=== PATIENT | female | born 1975 | race Two or more races ===

== ENCOUNTER 2017-10-03 07:21 | Emergency (ER) | payer BC ==
[~2017-10-03] VITALS: Ht 157.5 cm; Wt 54.4 kg
[2017-10-03 07:53] VITALS: BP 131/88
[2017-10-03 08:34] LABS: Urine Bilirubin Negative (Negative); Urine Blood Negative /uL (Negative); Urine Color Yellow (Yellow); Urine Glucose Normal (Normal); Urine Ketone Negative (Negative); Urine Nitrite Negative (Negative); Urine RBC <1 /hpf (0 - 4); Urine Squamous Epithelial Cell FEW /hpf (<5); Urine Urobilinogen Normal (Negative)
[2017-10-03 09:04] LABS: Basophils # (auto) 0 uL; Basophils % (auto) 0.9 % (0.0-2.0); Eosinophils # (auto) 0.1 uL; Eosinophils % (auto) 3.4 % (0.0-7.0); Hematocrit 39.6 % (36.0-46.0); Hemoglobin 13.4 g/dL (12.2-16.2); Lymphocytes # (auto) 1.5 uL; Mean Corpuscular Hemoglobin 28.5 pg (28.0-32.0); Mean Corpuscular Hgb Conc. 33.9 g/dL (32.0-36.0); Mean Platelet Volume 8.1 fL (6.9-10.8); Monocytes # (auto) 0.4 uL; Monocytes % (auto) 8.2 % (0.0-12.0); Neutrophils # (auto) 2.3 uL; Neutrophils % (auto) 52.5 % (37.0-80.0); Nucleated Red Blood Cells % 0.1 %; Platelet Count (auto) 248 10^3/uL (140-450); Red Cell Distribution Width 13.6 % (11.8-14.3); White Blood Cell 4.4 10^3/uL (4.4-10.8)
[2017-10-03 09:25] LABS: Albumin 3.2 g/dL (3.4-5.0); BUN/Creatinine Ratio 22.2; Bilirubin, Total 0.4 mg/dL (0.2-1.0); Calcium 8.1 mg/dL (8.5-10.1); Total Protein 6.4 g/dL (6.4-8.2)
[2017-10-03] MEDS ORDERED: NITROFURANTOIN (MONO) 100 mg CAP PO ONE (09:45)
== END 2017-10-03 09:51 | disposition home or self-care (01) ==
LOC: ER 07:21
DX: N39.0 Urinary tract infection, site not specified (principal); Z98.51 Tubal ligation status
CPT/HCPCS: 36415; 74176; 80053; 81001; 85025

== ENCOUNTER → 2018-04-12 | Outpatient (CLI) | payer BC ==
[2018-04-12 08:27] LABS: Urine Blood TRACE /uL (Negative); Urine Specific Gravity 1.022 (1.001-1.035)
[2018-04-12 08:31] LABS: Basophils # (auto) 0 uL; Basophils % (auto) 0.7 % (0.0-2.0); Eosinophils # (auto) 0.1 uL; Eosinophils % (auto) 3.2 % (0.0-7.0); Hematocrit 44.3 % (36.0-46.0); Hemoglobin 14.5 g/dL (12.2-16.2); Lymphocytes # (auto) 1.5 uL; Lymphocytes % (auto) 32.1 % (10.0-50.0); Mean Corpuscular Hemoglobin 27.5 pg (28.0-32.0); Mean Corpuscular Hgb Conc. 32.8 g/dL (32.0-36.0); Mean Corpuscular Volume 83.8 fL (80.0-100.0); Monocytes # (auto) 0.4 uL; Monocytes % (auto) 8.3 % (0.0-12.0); Neutrophils # (auto) 2.5 uL; Neutrophils % (auto) 55.7 % (37.0-80.0); Nucleated Red Blood Cells % 0.1 %; Platelet Count (auto) 261 10^3/uL (140-450); Red Blood Cells 5.29 10^6/uL (4.0-5.20); Red Cell Distribution Width 13.9 % (11.8-14.3); White Blood Cell 4.5 10^3/uL (4.4-10.8)
[2018-04-12 08:46] LABS: Albumin 3.6 g/dL (3.4-5.0); BUN/Creatinine Ratio 26.5; Bilirubin, Total 0.4 mg/dL (0.2-1.0); Calcium 8.7 mg/dL (8.5-10.1); Potassium 4.2 mmol/L (3.5-5.1); Total Protein 7.2 g/dL (6.4-8.2)
== END | disposition home or self-care (01) ==
LOC: LAB 07:50
PROVIDERS: ATTEND Physician Assistant
DX: Z00.01 Encounter for general adult medical examination with abnormal findings (principal); F41.9 Anxiety disorder, unspecified; F32.5 Major depressive disorder, single episode, in full remission; N39.0 Urinary tract infection, site not specified; R53.83 Other fatigue; Z83.3 Family history of diabetes mellitus
CPT/HCPCS: 36415; 80053; 80061; 81003; 82306; 82607; 83036; 84443; 85025

== ENCOUNTER → 2019-05-18 | Outpatient (CLI) | payer BC ==
[2019-05-18 08:03] LABS: Basophils # (auto) 0 uL; Basophils % (auto) 0.5 % (0.0-2.0); Eosinophils # (auto) 0.1 uL; Eosinophils % (auto) 2.8 % (0.0-7.0); Hemoglobin 14.2 g/dL (12.2-16.2); Lymphocytes # (auto) 1.4 uL; Lymphocytes % (auto) 27.7 % (10.0-50.0); Mean Corpuscular Hgb Conc. 33.9 g/dL (32.0-36.0); Mean Corpuscular Volume 82.7 fL (80.0-100.0); Monocytes # (auto) 0.5 uL; Monocytes % (auto) 8.9 % (0.0-12.0); Neutrophils # (auto) 3.1 uL; Neutrophils % (auto) 60.1 % (37.0-80.0); Nucleated Red Blood Cells % 0.3 %; Platelet Count (auto) 243 10^3/uL (140-450); Red Blood Cells 5.08 10^6/uL (4.0-5.20); White Blood Cell 5.1 10^3/uL (4.4-10.8)
[2019-05-18 08:41] LABS: Albumin 3.4 g/dL (3.4-5.0); Calcium 8.5 mg/dL (8.5-10.1); Potassium 4.1 mmol/L (3.5-5.1)
[2019-05-18 08:47] LABS: BUN/Creatinine Ratio 22.1; Bilirubin, Total 0.4 mg/dL (0.2-1.0); Total Protein 6.9 g/dL (6.4-8.2)
== END | disposition home or self-care (01) ==
LOC: LAB 07:22
PROVIDERS: ATTEND Physician Assistant
DX: Z00.00 Encounter for general adult medical examination without abnormal findings (principal); E55.9 Vitamin D deficiency, unspecified; F41.9 Anxiety disorder, unspecified; R53.83 Other fatigue
CPT/HCPCS: 36415; 80053; 80061; 82306; 84443; 85025

== ENCOUNTER → 2020-05-23 | Outpatient (CLI) | payer BC ==
[2020-05-23 11:37] LABS: Follicle Stimulating Hormone 4.25 IU/L (SEE BELOW); Leuteinizing Hormone 1.8 IU/L
== END | disposition home or self-care (01) ==
LOC: LAB 10:55
PROVIDERS: ATTEND Obstetrics & Gynecology
DX: N92.0 Excessive and frequent menstruation with regular cycle (principal)
CPT/HCPCS: 36415; 82670; 83001; 83002; 84403; 84443

== ENCOUNTER → 2020-05-27 | Outpatient (CLI) | payer BC ==
[2020-05-27 09:01] LABS: Basophils # (auto) 0 10 ^3/uL (0-0.2); Eosinophils # (auto) 0.2 10 ^3/uL (0-0.8); Monocytes # (auto) 0.4 10 ^3/uL (0-1.3)
[2020-05-27 09:02] LABS: Basophils % (auto) 0.7 % (0.0-2.0); Eosinophils % (auto) 4.9 % (0.0-7.0); Hematocrit 40.2 % (36.0-46.0); Lymphocytes # (auto) 1.5 10 ^3/uL (0.4-5.4); Lymphocytes % (auto) 33.6 % (10.0-50.0); Mean Corpuscular Hemoglobin 26.2 pg (28.0-32.0); Mean Corpuscular Hgb Conc. 32.3 g/dL (32.0-36.0); Mean Corpuscular Volume 81.2 fL (80.0-100.0); Monocytes % (auto) 8.9 % (0.0-12.0); Neutrophils # (auto) 2.4 10 ^3/uL (1.6-8.6); Neutrophils % (auto) 51.9 % (37.0-80.0); Nucleated Red Blood Cells % 0.1 %; Platelet Count (auto) 269 10^3/uL (140-450); Red Blood Cells 4.95 10^6/uL (4.0-5.20); Red Cell Distribution Width 14.3 % (11.8-14.3); White Blood Cell 4.5 10^3/uL (4.4-10.8)
[2020-05-27 09:52] LABS: Potassium 3.8 mmol/L (3.5-5.1)
[2020-05-27 10:11] LABS: Albumin 3.4 g/dL (3.4-5.0); Bilirubin, Total 0.3 mg/dL (0.2-1.0); Calcium 8.6 mg/dL (8.5-10.1); Total Protein 7.2 g/dL (6.4-8.2)
== END | disposition home or self-care (01) ==
LOC: LAB 08:50
PROVIDERS: ATTEND Physician Assistant
DX: Z12.11 Encounter for screening for malignant neoplasm of colon (principal); Z00.00 Encounter for general adult medical examination without abnormal findings; E55.9 Vitamin D deficiency, unspecified; R60.0 Localized edema; R53.83 Other fatigue
CPT/HCPCS: 36415; 80053; 80061; 82306; 85025

== ENCOUNTER → 2020-06-17 | Outpatient (CLI) | payer BC | END | disposition home or self-care (01) | LOC: LAB 15:00 | PROVIDERS: ATTEND Obstetrics & Gynecology | DX: N92.0 Excessive and frequent menstruation with regular cycle (principal) ==

== ENCOUNTER 2020-08-15 06:15 | Day surgery (SDC) | payer BC ==
[2020-08-11 11:13] LABS: Urine Bacteria FEW /hpf (None Seen); Urine Blood Negative /uL (Negative); Urine Specific Gravity 1.009 (1.001-1.035); Urine WBC 3 /hpf (0 - 5)
[2020-08-11 11:15] LABS: Basophils # (auto) 0 10 ^3/uL (0-0.2); Eosinophils # (auto) 0.2 10 ^3/uL (0-0.8); Lymphocytes # (auto) 1.4 10 ^3/uL (0.4-5.4); Monocytes # (auto) 0.4 10 ^3/uL (0-1.3); Neutrophils # (auto) 3.5 10 ^3/uL (1.6-8.6); Red Blood Cells 5.04 10^6/uL (4.0-5.20); White Blood Cell 5.4 10^3/uL (4.4-10.8)
[2020-08-11 11:16] LABS: Basophils % (auto) 0.6 % (0.0-2.0); Eosinophils % (auto) 2.8 % (0.0-7.0); Hemoglobin 12.9 g/dL (12.2-16.2); Lymphocytes % (auto) 25.2 % (10.0-50.0); Mean Corpuscular Hemoglobin 25.7 pg (28.0-32.0); Mean Corpuscular Hgb Conc. 32.4 g/dL (32.0-36.0); Mean Corpuscular Volume 79.3 fL (80.0-100.0); Monocytes % (auto) 7.4 % (0.0-12.0); Platelet Count (auto) 288 10^3/uL (140-450); Red Cell Distribution Width 14.5 % (11.8-14.3)
[2020-08-11 11:29] LABS: INR 0.97 (0.9-1.15); Partial Thromboplastin Time 25.3 sec (23.0-31.2)
[2020-08-11 12:31] LABS: Albumin 3.6 g/dL (3.4-5.0); Calcium 8.6 mg/dL (8.5-10.1); Potassium 4.2 mmol/L (3.5-5.1)
[2020-08-11 12:36] LABS: BUN/Creatinine Ratio 15.5; Bilirubin, Total 0.4 mg/dL (0.2-1.0); Total Protein 6.8 g/dL (6.4-8.2)
[~2020-08-15] VITALS: Ht 157.5 cm; Wt 59.0 kg
[2020-08-15] MEDS ORDERED: ceFAZolin 1GM/50ML 50 ML IV ONE (07:02)
[2020-08-15] MEDS ORDERED: METOCLOPRAMIDE HCL 5MG/ml INJ 2ml VIAL IV PRN (07:30)
[2020-08-15] MEDS ORDERED: MORPHINE SULFATE 4 MG/ML SYR/VIAL IV PRN (07:30)
[2020-08-15] MEDS ORDERED: HYDROmorphone HCL 2 MG/ML VL IV PRN (07:30)
[2020-08-15] MEDS ORDERED: MIDAZOLAM HCL 1MG/1ML-2 ML VIAL ONE (07:33)
[2020-08-15] MEDS ORDERED: PROPOFOL 10 MG/ML 20 ML IV ONE ×2 (07:33→11:07)
[2020-08-15] MEDS ORDERED: SODIUM CHLORIDE LOCK 10 ML ONE (07:33)
[2020-08-15] MEDS ORDERED: fentaNYL CITRATE 100 MCG/2 ML VL ONE (07:33)
[2020-08-15] MEDS ORDERED: ONDANSETRON HCL 4 MG/2 ML VIAL ONE (07:33)
[2020-08-15] MEDS ORDERED: LIDOCAINE 2% (LOCAL ANESTH.) PF 5ml SDV ONE (08:09)
[2020-08-15] MEDS ORDERED: ONDANSETRON HCL 4 MG/2 ML VIAL IV PRN (08:45)
[2020-08-15] MEDS ORDERED: LACTATED RINGER'S 1,000 ML IV SCH (08:45)
[2020-08-15 09:48] VITALS: BP 146/83
== END 2020-08-15 11:30 | disposition home or self-care (01) ==
LOC: SUR 06:15
PROVIDERS: ATTEND Obstetrics & Gynecology
DX: N93.8 Other specified abnormal uterine and vaginal bleeding (principal); D25.9 Leiomyoma of uterus, unspecified; D26.1 Other benign neoplasm of corpus uteri; D64.9 Anemia, unspecified; Z98.51 Tubal ligation status; Z98.890 Other specified postprocedural states; Z20.828 Contact with and (suspected) exposure to other viral communicable diseases
CPT/HCPCS: 36415; 58563; 80053; 81001; 84702; 85025; 85610; 85730; 86850; 86900; 86901; 88305; J0690; J1170; J2001; J2250; J2405; J2704; J3010; U0003

== ENCOUNTER → 2021-05-28 | Outpatient (CLI) | payer BC ==
[2021-05-28 07:33] LABS: Basophils # (auto) 0 10 ^3/uL (0-0.2); Basophils % (auto) 0.8 % (0.0-2.0); Eosinophils # (auto) 0.2 10 ^3/uL (0-0.8); Eosinophils % (auto) 3.1 % (0.0-7.0); Hematocrit 42.2 % (36.0-46.0); Hemoglobin 14.3 g/dL (12.2-16.2); Lymphocytes # (auto) 1.7 10 ^3/uL (0.4-5.4); Lymphocytes % (auto) 32.1 % (10.0-50.0); Mean Corpuscular Hemoglobin 27.4 pg (28.0-32.0); Mean Corpuscular Hgb Conc. 33.9 g/dL (32.0-36.0); Mean Corpuscular Volume 80.8 fL (80.0-100.0); Monocytes # (auto) 0.4 10 ^3/uL (0-1.3); Monocytes % (auto) 8.7 % (0.0-12.0); Neutrophils # (auto) 2.8 10 ^3/uL (1.6-8.6); Neutrophils % (auto) 55.3 % (37.0-80.0); Red Blood Cells 5.22 10^6/uL (4.0-5.20); Red Cell Distribution Width 14.3 % (11.8-14.3); White Blood Cell 5.2 10^3/uL (4.4-10.8)
[2021-05-28 08:01] LABS: Albumin 3.5 g/dL (3.4-5.0); Calcium 8.5 mg/dL (8.5-10.1)
[2021-05-28 08:07] LABS: BUN/Creatinine Ratio 20.3; Bilirubin, Total 0.5 mg/dL (0.2-1.0); Total Protein 7.3 g/dL (6.4-8.2)
[2021-05-28 08:38] LABS: Leuteinizing Hormone 4.4 IU/L
[2021-05-28 08:39] LABS: Follicle Stimulating Hormone 3.6 IU/L (SEE BELOW)
== END | disposition home or self-care (01) ==
LOC: LAB 06:54
PROVIDERS: ATTEND Nurse Practitioner Family
DX: I83.20 Varicose veins of unspecified lower extremity with both ulcer and inflammation (principal); F41.1 Generalized anxiety disorder; E78.5 Hyperlipidemia, unspecified; E55.9 Vitamin D deficiency, unspecified
CPT/HCPCS: 36415; 80053; 80061; 82306; 82672; 83001; 83002; 84144; 84443; 85025

== ENCOUNTER → 2021-06-10 | Day surgery (SDC) | payer BC ==
[2021-06-03 08:56] LABS: Urine WBC None Seen /hpf (0 - 5)
[2021-06-03 08:59] LABS: Basophils # (auto) 0.1 10 ^3/uL (0-0.2); Eosinophils # (auto) 0.2 10 ^3/uL (0-0.8); Eosinophils % (auto) 3.7 % (0.0-7.0); Hematocrit 42.5 % (36.0-46.0); Hemoglobin 14.2 g/dL (12.2-16.2); Lymphocytes # (auto) 1.4 10 ^3/uL (0.4-5.4); Lymphocytes % (auto) 27.9 % (10.0-50.0); Mean Corpuscular Hemoglobin 27.1 pg (28.0-32.0); Mean Corpuscular Hgb Conc. 33.3 g/dL (32.0-36.0); Mean Corpuscular Volume 81.5 fL (80.0-100.0); Monocytes # (auto) 0.4 10 ^3/uL (0-1.3); Monocytes % (auto) 8.3 % (0.0-12.0); Neutrophils # (auto) 2.9 10 ^3/uL (1.6-8.6); Neutrophils % (auto) 59.1 % (37.0-80.0); Nucleated Red Blood Cells % 0.1 %; Red Blood Cells 5.22 10^6/uL (4.0-5.20); Red Cell Distribution Width 14.4 % (11.8-14.3)
[2021-06-03 09:27] LABS: INR 1.01 (0.9-1.15); Partial Thromboplastin Time 26.8 sec (23.6-33.0)
[2021-06-03 09:34] LABS: Urine Bacteria NONE SEEN /hpf (None Seen); Urine Blood 2+ /uL (Negative); Urine Specific Gravity 1.008 (1.001-1.035)
[2021-06-03 09:36] LABS: Albumin 3.4 g/dL (3.4-5.0); BUN/Creatinine Ratio 15.1; Calcium 8.6 mg/dL (8.5-10.1)
[2021-06-03 09:39] LABS: Bilirubin, Total 0.3 mg/dL (0.2-1.0); Total Protein 7.2 g/dL (6.4-8.2)
[~2021-06-10] VITALS: Ht 157.5 cm; Wt 61.2 kg
[~2021-06-10] MED LIST: BETAMETHASONE ACET (30mg/5ml) 5ml Vial 6mg/ml ONE; BUPIVACAINE W/ EPINEPH 0.5% MPF 30ML VIAL IJ ONE; HYDROmorphone HCL 2 MG/ML VL IV PRN; LIDOCAINE 2% (LOCAL ANESTH.) PF 5ml SDV ONE; MIDAZOLAM HCL 2MG/2ML 2ml VIAL (1mg/ml) ONE; ONDANSETRON HCL 4 MG/2 ML VIAL IV PRN; ONDANSETRON HCL 4 MG/2 ML VIAL ONE; PROPOFOL 10 MG/ML 20 ML IV ONE; ceFAZolin 1GM/50ML 100 ML IV ONE; fentaNYL CITRATE 100 MCG/2 ML VL ONE
[2021-06-10 14:50] VITALS: BP 129/41
== END | disposition home or self-care (01) ==
LOC: SUR 10:46
PROVIDERS: ATTEND Surgery
DX: I83.91 Asymptomatic varicose veins of right lower extremity (principal); M79.89 Other specified soft tissue disorders; Z98.890 Other specified postprocedural states; Z79.899 Other long term (current) drug therapy; Z20.822 Contact with and (suspected) exposure to COVID-19
CPT/HCPCS: 36415; 37785; 80053; 81001; 81025; 85025; 85610; 85730; J0690; J0702; J2001; J2250; J2405; J2704; J3010; J7030; U0003

== ENCOUNTER → 2022-01-28 | Outpatient (CLI) | payer BC ==
[2022-01-28 13:04] LABS: Basophils # (auto) 0 10 ^3/uL (0-0.2); Basophils % (auto) 0.9 % (0.0-2.0); Eosinophils # (auto) 0.1 10 ^3/uL (0-0.8); Eosinophils % (auto) 2.6 % (0.0-7.0); Hematocrit 39.7 % (36.0-46.0); Hemoglobin 13.4 g/dL (12.2-16.2); Lymphocytes # (auto) 1.6 10 ^3/uL (0.4-5.4); Lymphocytes % (auto) 30.9 % (10.0-50.0); Mean Corpuscular Hemoglobin 27.5 pg (28.0-32.0); Mean Corpuscular Hgb Conc. 33.8 g/dL (32.0-36.0); Mean Corpuscular Volume 81.1 fL (80.0-100.0); Monocytes # (auto) 0.5 10 ^3/uL (0-1.3); Monocytes % (auto) 9.2 % (0.0-12.0); Neutrophils % (auto) 56.4 % (37.0-80.0); Nucleated Red Blood Cells % 0.1 %; Red Cell Distribution Width 13.4 % (11.8-14.3); White Blood Cell 5.3 10^3/uL (4.4-10.8)
[2022-01-28 13:21] LABS: Albumin 3.4 g/dL (3.4-5.0); Calcium 8.5 mg/dL (8.5-10.1); Potassium 3.8 mmol/L (3.5-5.1)
[2022-01-28 13:24] LABS: BUN/Creatinine Ratio 16.2; Bilirubin, Total 0.4 mg/dL (0.2-1.0); Total Protein 6.8 g/dL (6.4-8.2)
== END | disposition home or self-care (01) ==
LOC: LAB 12:02
PROVIDERS: ATTEND Nurse Practitioner Family
DX: Z00.00 Encounter for general adult medical examination without abnormal findings (principal); E55.9 Vitamin D deficiency, unspecified; R10.9 Unspecified abdominal pain; R30.0 Dysuria; F41.9 Anxiety disorder, unspecified
CPT/HCPCS: 36415; 80053; 82306; 85025

== ENCOUNTER 2022-04-09 06:18 | Inpatient (IN) | payer BC ==
[2022-04-06 09:37] LABS: Basophils # (auto) 0 10 ^3/uL (0-0.2); Basophils % (auto) 0.6 % (0.0-2.0); Eosinophils # (auto) 0.1 10 ^3/uL (0-0.8); Eosinophils % (auto) 2.2 % (0.0-7.0); Hemoglobin 13.2 g/dL (12.2-16.2); Lymphocytes # (auto) 1.5 10 ^3/uL (0.4-5.4); Mean Corpuscular Hemoglobin 27.5 pg (28.0-32.0); Mean Corpuscular Hgb Conc. 33.7 g/dL (32.0-36.0); Mean Corpuscular Volume 81.5 fL (80.0-100.0); Monocytes # (auto) 0.5 10 ^3/uL (0-1.3); Neutrophils # (auto) 3.5 10 ^3/uL (1.6-8.6); Neutrophils % (auto) 61.2 % (37.0-80.0); Nucleated Red Blood Cells % 0.1 %; Red Blood Cells 4.78 10^6/uL (4.0-5.20); Red Cell Distribution Width 14.2 % (11.8-14.3); White Blood Cell 5.7 10^3/uL (4.4-10.8)
[2022-04-06 09:42] LABS: Urine Bacteria FEW /hpf (None Seen); Urine Blood 2+ /uL (Negative); Urine Specific Gravity 1.009 (1.001-1.035); Urine WBC <1 /hpf (0 - 5)
[2022-04-06 09:51] LABS: INR 1.02 (0.9-1.15); Partial Thromboplastin Time 26.7 sec (23.6-33.0)
[2022-04-06 10:05] LABS: Calcium 8.4 mg/dL (8.5-10.1); Potassium 3.9 mmol/L (3.5-5.1)
[2022-04-06 10:12] LABS: Albumin 3.3 g/dL (3.4-5.0); BUN/Creatinine Ratio 18.8; Bilirubin, Total 0.5 mg/dL (0.2-1.0); Total Protein 6.6 g/dL (6.4-8.2)
[~2022-04-09] VITALS: Ht 157.5 cm; Wt 63.2 kg
[2022-04-09] MEDS ORDERED: ceFAZolin 1GM/50ML 100 ML IV ONE (06:36)
[2022-04-09] MEDS ORDERED: HYDR-4902 PO (07:32)
[2022-04-09] MEDS ORDERED: DOCU-94 PO (07:32)
[2022-04-09] MEDS ORDERED: IBUP800T27 PO (07:32)
[2022-04-09] MEDS ORDERED: MEPERIDINE HCL (50 MG/ML) 1 ML VIAL ONE (08:10)
[2022-04-09] MEDS ORDERED: MIDAZOLAM HCL 2MG/2ML 2ml VIAL (1mg/ml) ONE (08:10)
[2022-04-09] MEDS ORDERED: fentaNYL CITRATE 100 MCG/2 ML VL ONE (08:10)
[2022-04-09] MEDS ORDERED: NEOSTIGMINE 1 MG/ML INJ (10mg/10ML VIAL) IV ONE (08:40)
[2022-04-09] MEDS ORDERED: DexAMETHasone SOD PHOS 10MG/1ML VIAL INJ ONE (08:40)
[2022-04-09] MEDS ORDERED: GLYCOPYRROLATE 0.2 MG/ML 1ML VIAL IV ONE (08:40)
[2022-04-09] MEDS ORDERED: PROPOFOL 10 MG/ML 20 ML IV ONE (08:40)
[2022-04-09] MEDS ORDERED: LABETALOL HCL 5 MG/ML 4ML SYRINGE IV PRN (08:45)
[2022-04-09] MEDS ORDERED: MORPHINE SULFATE 4 MG/ML SYR/VIAL IV PRN ×2 (08:45→09:45)
[2022-04-09] MEDS ORDERED: MIDAZOLAM HCL 2MG/2ML 2ml VIAL (1mg/ml) IV PRN (08:45)
[2022-04-09] MEDS ORDERED: ePHEDrine SULFATE 50 MG/ML AMP IV PRN (08:45)
[2022-04-09] MEDS ORDERED: ONDANSETRON HCL 4 MG/2 ML VIAL IV PRN (08:45)
[2022-04-09] MEDS: HYDROmorphone HCL 2 MG/ML VL/or syr IV PRN ×8 (09:57→21:12)
[2022-04-09] MEDS: LACTATED RINGER'S 1,000 ML IV SCH ×2 (10:17→21:14)
[2022-04-09] MEDS ORDERED: NITROGLYCERIN 0.4 MG SL TAB SL PRN (10:30)
[2022-04-09] MEDS ORDERED: MORPHINE SULFATE INJ 2 MG/ml SYRG IV PRN (10:30)
[2022-04-09] MEDS ORDERED: hydrALAZINE HCL 20 MG/ML VL ONE (10:55)
[2022-04-09] MEDS ORDERED: hydrALAZINE HCL 20 MG/ML VL IV PRN (11:00)
[2022-04-09] MEDS: ONDANSETRON HCL 4 MG/2 ML VIAL IV PRN ×2 (12:45→16:45)
[2022-04-09 13:00] VITALS: BP 140/91
[2022-04-09] MEDS: ceFAZolin 1GM/50ML 50 ML IV SCH ×2 (13:43→21:14)
[2022-04-09 15:49] VITALS: BP 138/84
[2022-04-09 17:12] VITALS: BP 117/75
[2022-04-09 19:46] LABS: Basophils # (auto) 0 10 ^3/uL (0-0.2); Basophils % (auto) 0.1 % (0.0-2.0); Eosinophils # (auto) 0 10 ^3/uL (0-0.8); Hematocrit 37.5 % (36.0-46.0); Hemoglobin 12.6 g/dL (12.2-16.2); Lymphocytes # (auto) 0.7 10 ^3/uL (0.4-5.4); Lymphocytes % (auto) 6.6 % (10.0-50.0); Mean Corpuscular Hemoglobin 27.4 pg (28.0-32.0); Mean Corpuscular Hgb Conc. 33.7 g/dL (32.0-36.0); Mean Corpuscular Volume 81.4 fL (80.0-100.0); Monocytes # (auto) 0.5 10 ^3/uL (0-1.3); Monocytes % (auto) 4.7 % (0.0-12.0); Neutrophils # (auto) 9.5 10 ^3/uL (1.6-8.6); Neutrophils % (auto) 88.6 % (37.0-80.0); Nucleated Red Blood Cells % 0.1 %; Red Blood Cells 4.61 10^6/uL (4.0-5.20); Red Cell Distribution Width 14.2 % (11.8-14.3); White Blood Cell 10.7 10^3/uL (4.4-10.8)
[2022-04-09 21:39] VITALS: BP 134/79
[2022-04-10] MEDS: LACTATED RINGER'S 1,000 ML IV SCH ×4 (03:11→14:22)
[2022-04-10] MEDS: HYDROmorphone HCL 2 MG/ML VL/or syr IV PRN (03:12)
[2022-04-10] MEDS: ceFAZolin 1GM/50ML 50 ML IV SCH ×3 (05:46→21:20)
[2022-04-10] MEDS ORDERED: KETOROLAC TROMETH 30 MG/ML 1ML VIAL IV ONE (06:00)
[2022-04-10] MEDS ORDERED: BISACODYL 10 MG RECT SUPP PR PRN (06:00)
[2022-04-10 07:21] LABS: Basophils # (auto) 0 10 ^3/uL (0-0.2); Basophils % (auto) 0.3 % (0.0-2.0); Hemoglobin 11.8 g/dL (12.2-16.2); Lymphocytes # (auto) 1.5 10 ^3/uL (0.4-5.4); Monocytes # (auto) 0.6 10 ^3/uL (0-1.3); Neutrophils # (auto) 4.8 10 ^3/uL (1.6-8.6)
[2022-04-10 07:23] LABS: Eosinophils # (auto) 0.1 10 ^3/uL (0-0.8); Eosinophils % (auto) 0.7 % (0.0-7.0); Hematocrit 35.5 % (36.0-46.0); Lymphocytes % (auto) 21.8 % (10.0-50.0); Mean Corpuscular Hgb Conc. 33.2 g/dL (32.0-36.0); Mean Corpuscular Volume 81.2 fL (80.0-100.0); Monocytes % (auto) 8.5 % (0.0-12.0); Neutrophils % (auto) 68.7 % (37.0-80.0); Nucleated Red Blood Cells % 0.1 %; Red Blood Cells 4.37 10^6/uL (4.0-5.20); Red Cell Distribution Width 13.7 % (11.8-14.3)
[2022-04-10 09:00] VITALS: BP 135/89
[2022-04-10] MEDS: HYDROcodone-ACET 10/325MG TAB PO PRN ×2 (09:24→18:20)
[2022-04-10] MEDS: DOCUSATE SOD 100 MG CAP PO SCH ×2 (09:25→21:19)
[2022-04-10] MEDS: ONDANSETRON HCL 4 MG/2 ML VIAL IV PRN ×2 (10:30→20:32)
[2022-04-10] MEDS ORDERED: ACETAMINOPHEN 325 MG TAB PO PRN (11:15)
[2022-04-10 13:00] VITALS: BP 129/87
[2022-04-10 16:59] VITALS: BP 127/75
[2022-04-10 22:00] VITALS: BP 117/76
[2022-04-11] MEDS: HYDROcodone-ACET 10/325MG TAB PO PRN ×2 (04:01→09:08)
[2022-04-11] MEDS: LACTATED RINGER'S 1,000 ML IV SCH (04:01)
[2022-04-11 05:00] VITALS: BP 114/69
[2022-04-11] MEDS: ceFAZolin 1GM/50ML 50 ML IV SCH (06:17)
[2022-04-11 09:00] VITALS: BP 122/84
[2022-04-11] MEDS: DOCUSATE SOD 100 MG CAP PO SCH (09:08)
[2022-04-11] MEDS: ONDANSETRON HCL 4 MG/2 ML VIAL IV PRN (09:08)
[2022-04-11] MEDS ORDERED: RHO (D) IMMUNE GLOBULIN 300 MCG INJ IM PRN (10:00)
== END 2022-04-11 11:30 | disposition home or self-care (01) | DRG 743 ==
LOC: SUR 06:18 → OVERFLOW 10:30 → CENTRAL 12:22
PROVIDERS: ADMIT Obstetrics & Gynecology; ATTEND Obstetrics & Gynecology
PROC: 0UT90ZL Resection of Uterus, Supracervical, Open Approach (ICD-10-PCS; principal; 2022-04-09 08:28)
DX: N93.9 Abnormal uterine and vaginal bleeding, unspecified (principal); Z20.822 Contact with and (suspected) exposure to COVID-19; F41.9 Anxiety disorder, unspecified; F32.9 Major depressive disorder, single episode, unspecified; Z82.49 Family history of ischemic heart disease and other diseases of the circulatory system; Z83.3 Family history of diabetes mellitus
CPT/HCPCS: 36415; 80053; 81001; 81025; 84702; 85025; 85610; 85730; 86850; 86900; 86901; G0378; J0690; J1100; J1885; J2250; J2405; J2704

== ENCOUNTER → 2022-09-03 | Outpatient (CLI) | payer BC ==
[~2022-09-03] MED LIST changes: -BETAMETHASONE ACET (30mg/5ml) 5ml Vial 6mg/ml ONE; -BUPIVACAINE W/ EPINEPH 0.5% MPF 30ML VIAL IJ ONE; +DOCU-94 PO; +HYDR-4902 PO; -HYDROmorphone HCL 2 MG/ML VL IV PRN; +IBUP800T27 PO; -LIDOCAINE 2% (LOCAL ANESTH.) PF 5ml SDV ONE; -MIDAZOLAM HCL 2MG/2ML 2ml VIAL (1mg/ml) ONE; -ONDANSETRON HCL 4 MG/2 ML VIAL IV PRN; -ONDANSETRON HCL 4 MG/2 ML VIAL ONE; -PROPOFOL 10 MG/ML 20 ML IV ONE; -ceFAZolin 1GM/50ML 100 ML IV ONE; -fentaNYL CITRATE 100 MCG/2 ML VL ONE
[2022-09-03 10:30] LABS: Basophils # (auto) 0 10 ^3/uL (0-0.2); Basophils % (auto) 0.8 % (0.0-2.0); Eosinophils # (auto) 0.2 10 ^3/uL (0-0.8); Eosinophils % (auto) 2.6 % (0.0-7.0); Hematocrit 42.5 % (36.0-46.0); Lymphocytes # (auto) 2.4 10 ^3/uL (0.4-5.4); Lymphocytes % (auto) 38.2 % (10.0-50.0); Mean Corpuscular Hemoglobin 27.2 pg (28.0-32.0); Mean Corpuscular Volume 82.4 fL (80.0-100.0); Monocytes # (auto) 0.6 10 ^3/uL (0-1.3); Monocytes % (auto) 9.1 % (0.0-12.0); Neutrophils # (auto) 3.1 10 ^3/uL (1.6-8.6); Neutrophils % (auto) 49.3 % (37.0-80.0); Nucleated Red Blood Cells % 0.1 %; Red Blood Cells 5.16 10^6/uL (4.0-5.20); Red Cell Distribution Width 14.3 % (11.8-14.3); White Blood Cell 6.3 10^3/uL (4.4-10.8)
[2022-09-03 11:17] LABS: Albumin 3.6 g/dL (3.4-5.0)
[2022-09-03 11:21] LABS: BUN/Creatinine Ratio 14.5; Potassium 4.1 mmol/L (3.5-5.1)
[2022-09-03 11:24] LABS: Bilirubin, Total 0.4 mg/dL (0.2-1.0); Total Protein 6.9 g/dL (6.4-8.2)
== END | disposition home or self-care (01) ==
LOC: LAB 10:18
PROVIDERS: ATTEND Nurse Practitioner Family
DX: Z09 Encounter for follow-up examination after completed treatment for conditions other than malignant neoplasm (principal); E55.9 Vitamin D deficiency, unspecified
CPT/HCPCS: 36415; 80053; 82306; 85025

== ENCOUNTER → 2023-05-10 | Outpatient (CLI) | payer BC ==
[~2023-05-10] MED LIST changes: +IBUP-1456 PO; -IBUP800T27 PO
[2023-05-10 08:22] LABS: Basophils # (auto) 0 10 ^3/uL (0-0.2); Basophils % (auto) 0.7 % (0.0-2.0); Eosinophils # (auto) 0.2 10 ^3/uL (0-0.8); Eosinophils % (auto) 2.9 % (0.0-7.0); Hematocrit 43.5 % (36.0-46.0); Hemoglobin 14.5 g/dL (12.2-16.2); Lymphocytes # (auto) 1.9 10 ^3/uL (0.4-5.4); Lymphocytes % (auto) 31.6 % (10.0-50.0); Mean Corpuscular Hemoglobin 28.1 pg (28.0-32.0); Mean Corpuscular Hgb Conc. 33.4 g/dL (32.0-36.0); Monocytes # (auto) 0.5 10 ^3/uL (0-1.3); Monocytes % (auto) 7.6 % (0.0-12.0); Neutrophils # (auto) 3.5 10 ^3/uL (1.6-8.6); Neutrophils % (auto) 57.2 % (37.0-80.0); Nucleated Red Blood Cells % 0.6 %; Red Blood Cells 5.18 10^6/uL (4.0-5.20); Red Cell Distribution Width 13.7 % (11.8-14.3); White Blood Cell 6.1 10^3/uL (4.4-10.8)
[2023-05-10 08:56] LABS: Potassium 4.1 mmol/L (3.5-5.1)
[2023-05-10 09:07] LABS: Albumin 3.4 g/dL (3.4-5.0); BUN/Creatinine Ratio 28.3 (10.0-20.0); Bilirubin, Total 0.4 mg/dL (0.2-1.0); Calcium 8.6 mg/dL (8.5-10.1); Total Protein 6.9 g/dL (6.4-8.2)
[2023-05-10 09:08] LABS: Follicle Stimulating Hormone 2.51 IU/L (SEE BELOW); Free T4 (Free Thyroxine) 1.16 ng/dL (0.89-1.76); Leuteinizing Hormone 1.4 IU/L
== END | disposition home or self-care (01) ==
LOC: LAB 08:05
DX: Z00.01 Encounter for general adult medical examination with abnormal findings (principal); E55.9 Vitamin D deficiency, unspecified; E78.00 Pure hypercholesterolemia, unspecified
CPT/HCPCS: 36415; 80053; 80061; 82306; 82672; 83001; 83002; 84144; 84403; 84439; 84443; 85025

== ENCOUNTER → 2024-03-08 | Outpatient (CLI) | payer BC | END | disposition home or self-care (01) | LOC: XYW 08:28 | PROVIDERS: ATTEND Nurse Practitioner Family | DX: R07.9 Chest pain, unspecified (principal) | CPT/HCPCS: 93306 ==

== ENCOUNTER → 2024-12-06 | Outpatient (CLI) | payer BC ==
[2024-12-06 14:15] LABS: Basophils # (auto) 0.1 10 ^3/uL (0-0.2); Basophils % (auto) 0.8 % (0.0-2.0); Eosinophils # (auto) 0.2 10 ^3/uL (0-0.8); Eosinophils % (auto) 2.8 % (0.0-7.0); Hematocrit 43.8 % (36.0-46.0); Hemoglobin 14.5 g/dL (12.2-16.2); Lymphocytes # (auto) 2.2 10 ^3/uL (0.4-5.4); Lymphocytes % (auto) 33.5 % (10.0-50.0); Mean Corpuscular Hemoglobin 28.1 pg (28.0-32.0); Mean Corpuscular Hgb Conc. 33.1 g/dL (32.0-36.0); Monocytes # (auto) 0.5 10 ^3/uL (0-1.3); Monocytes % (auto) 7.8 % (0.0-12.0); Neutrophils # (auto) 3.7 10 ^3/uL (1.6-8.6); Neutrophils % (auto) 55.1 % (37.0-80.0); Platelet Count (auto) 313 10^3/uL (140-450); Red Blood Cells 5.15 10^6/uL (4.0-5.20); Red Cell Distribution Width 13.7 % (11.8-14.3); White Blood Cell 6.6 10^3/uL (4.4-10.8)
[2024-12-06 14:56] LABS: Alanine Aminotransferase 24 U/L (7-40); Albumin 4.5 g/dL (3.2-4.8); Alkaline Phosphatase 87 U/L (46-116); Anion Gap 8 (5-15); Aspartate Aminotransferase 18 U/L (13-40); BUN/Creatinine Ratio 15.4 (10.0-20.0); Bilirubin, Total 0.3 mg/dL (0.2-1.0); Blood Urea Nitrogen 12 mg/dL (9-23); Calcium 9.8 mg/dL (8.7-10.4); Carbon Dioxide 27 mmol/L (20-31); Chloride 105 mmol/L (98-107); Glucose 90 mg/dL (74-106); Sodium 140 mmol/L (136-145); Total Protein 6.9 g/dL (5.7-8.2)
[2024-12-06 14:57] LABS: Free T4 (Free Thyroxine) 1.17 ng/dL (0.89-1.76)
[2024-12-06 14:58] LABS: Follicle Stimulating Hormone 6.29 IU/L (SEE BELOW); Free T3 3.17 pg/mL (2.3-4.2)
[2024-12-07 08:06] LABS: Thyroid Peroxidase (TPO) Ab <9 IU/mL (0-34)
== END | disposition home or self-care (01) ==
LOC: LAB 13:44
PROVIDERS: ATTEND Obstetrics & Gynecology
DX: Z13.220 Encounter for screening for lipoid disorders (principal); N95.1 Menopausal and female climacteric states; E34.9 Endocrine disorder, unspecified; E53.9 Vitamin B deficiency, unspecified; E55.9 Vitamin D deficiency, unspecified; E07.89 Other specified disorders of thyroid
CPT/HCPCS: 36415; 80053; 82306; 82607; 82670; 83001; 84144; 84403; 84439; 84443; 84481; 85025; 86376

== ENCOUNTER → 2025-05-01 | Outpatient (CLI) | payer BC ==
[2025-05-01 07:31] LABS: Hematocrit 43.8 % (36.0-46.0); Hemoglobin 14.8 g/dL (12.2-16.2); Mean Corpuscular Hemoglobin 28.2 pg (28.0-32.0); Mean Corpuscular Volume 83.7 fL (80.0-100.0); Nucleated Red Blood Cells % 0.2 %
[2025-05-01 07:47] LABS: Alanine Aminotransferase 21 U/L (7-40); Albumin 4.2 g/dL (3.2-4.8); Alkaline Phosphatase 90 U/L (46-116); Anion Gap 9 (5-15); BUN/Creatinine Ratio 13.5 (10.0-20.0); Blood Urea Nitrogen 10 mg/dL (9-23); Calcium 9.6 mg/dL (8.7-10.4); Carbon Dioxide 26 mmol/L (20-31); Chloride 106 mmol/L (98-107); Cholesterol 184 mg/dL (< 200); Glucose 83 mg/dL (74-106); HDL Cholesterol 43 mg/dL (40-59); Potassium 4.3 mmol/L (3.5-5.1); Sodium 141 mmol/L (136-145); Total Protein 6.4 g/dL (5.7-8.2)
[2025-05-01 07:48] LABS: Bilirubin, Total 0.6 mg/dL (0.2-1.0); Triglycerides 205 mg/dL (< 150)
== END | disposition home or self-care (01) ==
LOC: LAB 06:50
PROVIDERS: ATTEND Nurse Practitioner Family
DX: E78.5 Hyperlipidemia, unspecified (principal); E55.9 Vitamin D deficiency, unspecified; Z00.01 Encounter for general adult medical examination with abnormal findings
CPT/HCPCS: 36415; 80053; 80061; 82306; 84443; 85025

== ENCOUNTER → 2025-07-22 | Day surgery (SDC) | payer BC ==
[2025-07-17 14:50] LABS: Hematocrit 44.3 % (36.0-46.0); Hemoglobin 14.7 g/dL (12.2-16.2); Mean Corpuscular Hemoglobin 28.2 pg (28.0-32.0); Mean Corpuscular Volume 85.0 fL (80.0-100.0); Nucleated Red Blood Cells % 0.0 %
[2025-07-17 14:58] LABS: Urine Protein, UAD Negative (Negative)
[2025-07-17 15:05] LABS: INR 0.98 (0.9-1.15); Partial Thromboplastin Time 27.2 SEC (24.5-34.5); Prothrombin Time 10.4 sec (9.3-11.8)
[2025-07-17 15:26] LABS: Alanine Aminotransferase 20 U/L (7-40); Albumin 4.3 g/dL (3.2-4.8); Alkaline Phosphatase 91 U/L (46-116); Anion Gap 10 (5-15); BUN/Creatinine Ratio 13.1 (10.0-20.0); Blood Urea Nitrogen 11 mg/dL (9-23); Calcium 8.9 mg/dL (8.7-10.4); Carbon Dioxide 26 mmol/L (20-31); Chloride 104 mmol/L (98-107); Glucose 87 mg/dL (74-106); Potassium 3.7 mmol/L (3.5-5.1); Sodium 140 mmol/L (136-145); Total Protein 7.0 g/dL (5.7-8.2)
[2025-07-17 15:27] LABS: Bilirubin, Total 0.3 mg/dL (0.2-1.0)
[~2025-07-22] VITALS: Ht 33 cm; Wt 0.5 kg
[~2025-07-22] MED LIST changes: -DOCU-94 PO; -HYDR-4902 PO; +HYDROmorphone HCL 2 MG/ML VL/or syr ONE; -IBUP-1456 PO; +KETOROLAC TROMETH 30 MG/ML 1ML VIAL IV ONE; +MIDAZOLAM HCL 2MG/2ML 2ml VIAL (1mg/ml) IV PRN; +MIDAZOLAM HCL 2MG/2ML 2ml VIAL (1mg/ml) ONE; +MORPHINE SULFATE 4 MG/ML SYR/VIAL IV PRN; +ONDANSETRON HCL 4 MG/2 ML VIAL IV PRN; +ONDANSETRON HCL 4 MG/2 ML VIAL ONE; +PROPOFOL 10 MG/ML 20 ML IV ONE; +VASOPRESSIN 20 UNIT/ML ONE; +ceFAZolin 2 GM/D5W50ml 50 ML IV ONE; +fentaNYL CITRATE 100 MCG/2 ML VL ONE; +hydrALAZINE HCL 20 MG/ML VL IV PRN
[2025-07-22 11:05] VITALS: TEMP 98.2
--- NOTE | 2025-07-22 12:12 | DVHOP2 ---
Operative Report - 2 Report Details Date: 07/22/25 Preop Diagnosis: Cystocele, vaginal wall prolapse, stress incontinence Postop Diagnosis: Same, raised discolored irregular border vaginal mucosal lesion Surgeon: Mady Pope Anesthesiologist: ROMAN STONE Anesthesia: General Consent: The patient was informed of the risks and benefits of the procedure. These include but are not limited to complications of anesthesia, postoperative infection, incomplete relief of symptoms, recurrence of symptoms, damage to blood vessels, nerves and tendons, deep venous thrombosis, pulmonary embolism and possible need for repeat surgery in the future. Complications: None Estimated Blood Loss: 50 cc Fluids: See anesthesia log Findings: Cystocele, kinked urethrovesical junction, vaginal cervical prolapse/enterocele Indications for Surgery: Pelvic pain prolapsed pelvis Name of Procedure Performed Vaginal colpo uterosacral pexy cystocele repair urethral sling partial vagine ctomy Procedure Details Procedure Details: Patient taken the operating room placed in supine position general anesthesia performed without difficulty serum placed in Vincenzo stirrups prepped and draped sterile fashion 17 [place] Worley catheter placed with clear urine, Lone star retractor was used with blue hooks weighted speculum placed posteriorly patient found to have confirmed cervical vaginal prolapse grade 3 kinked urethrovesical junction. 0.25% Marcaine used to infiltrate the cystocele mucosa subcu for hydrodissection and hemostasis. Two Cortney was placed on the dome of the cystocele and a lateral vaginal mucosal incision made with scalpel this incision was then taken cephalad and caudad with Metzenbaum findings scissors and then the cystocele was dissected out from the vaginal mucosa blunt and sharp dissection was noted that there was a discolored irregular bordered lesion adjacent to the incision and this was sent separate specimen as suspicious vaginal lesion. The redundant vaginal mucosa was then trimmed off the cystocele plication sutures used to reduce in plicate the cystocele. Two Evita 1 single incision sling was then placed through the obturator ligaments cystoscopy performed with no evidence of mesh and/or interruption of the internal bladder urine clear. Appropriate tension was placed using the the Evita 1 sling. Vaginal mucosa was then closed running continuous of 2 0 Vicryl. Worley was replaced. The lateral incision was made on the prolapse cervical vaginal mucosa on the left this was dissected retroperitoneally; I encountered an enterocele which was reduced and closed with a pursestring suture of Ethibond incorporating the Vaginal fascia. I then localize the left uterosacral ligament retro peritoneally; the Capio needle home delivery driver was placed with a 2-0 Ethibond through the uterosacral ligament 1 cm medial to the uterosacral notch. These were held long and then secured to the cervix submucosally. I then closed the majority of the vaginal incision with 2-0 Vicryl running continuous and then the suspension sutures were then tied effectively reducing uterine vaginal prolapse. The additional vaginal mucosa was then closed up to the cervix with a running continuous 2-0 Vicryl. Specimen: Vaginal mucosa, suspicious vaginal lesion Condition Good (Pelvic rest 8 weeks, leg bag Worley for 5-7 days patient to remove vaginal packing postop day 1 at home.) Disposition Home LIZABETH POPE DO Jul 22, 2025 12:12
[2025-07-22] MEDS: ceFAZolin 1GM VL ONE (12:25)
[2025-07-22] MEDS: LIDOCAINE 1%-Mpf/Epinephrine 1:200,000 30ml VIAL ONE (12:29)
[2025-07-22] MEDS: BUPIVACAINE 0.25% INJ 50ML VIAL ONE (12:29)
[2025-07-22] MEDS: GELATIN 1 SPONGE SIZE 50 TOP ONE ×2 (12:46→12:49)
[2025-07-22] MEDS: CONJ ESTROGENS 0.625MG/GM VAG CRM 30GM PV ONE (13:40)
[2025-07-22 13:52] VITALS: PULSE 90; RESP 11; O2SAT 98
[2025-07-22] MEDS: HYDROmorphone HCL 2 MG/ML VL/or syr IV PRN (14:00)
[2025-07-22] MEDS: ONDANSETRON HCL 4 MG/2 ML VIAL IV PRN (14:40)
[2025-07-22 16:00] VITALS: BP 120/72; PULSE 115; RESP 11; O2SAT 98
== END | disposition home or self-care (01) ==
LOC: EEVIPCON → SUR 06:19
PROVIDERS: ATTEND Obstetrics & Gynecology
DX: N81.10 Cystocele, unspecified (principal); N39.3 Stress incontinence (female) (male); D53.8 Other specified nutritional anemias; N89.8 Other specified noninflammatory disorders of vagina; Z98.51 Tubal ligation status; Z90.710 Acquired absence of both cervix and uterus
CPT/HCPCS: 15275; 36415; 57135; 57240; 57283; 57288; 80053; 81001; 81025; 85025; 85610; 85730; 87086; 88305; A4344; C1771; C2631; J0690; J1100; J1171; J2004; J2250; J2405; J2704; J3010; J7030; Q4180; J3490